=== PATIENT | female | born 1955 | race Caucasian/White ===

== ENCOUNTER 2018-04-06 09:45 | Emergency (ER) | payer MEDICARE ==
[~2018-04-06] VITALS: Ht 165.1 cm; Wt 90.0 kg
[~2018-04-06 09:45] MED LIST: COLACE 100100 MG/CAP PO; DILANTIN 100MG100 MG PO; DILANTIN KAPSE100 MG PO; DULCOLAX S10 MG/SUPP RC; LAMICTAL 100MG100 MG PO; LAMICTAL 25MG T25 MG PO; LAMICTAL XR100 MG PO; LAMICTAL XR25 MG PO; LIPITOR 40MG TA40 MG PO; LIPITOR20 MG PO; LOPRESSOR100 MG PO; METOPROLOL100 MG PO; MILK OF MA400 MG/52 PO; NORCO 325 MG-51 TAB PO; OSCAL 500 TAB500 MG PO; PRILOSEC 20MG20 MG PO; PRINIVIL10 MG PO; SENOKOT S 50 MG1 TAB PO; THERAGRAN TAB1 UDTAB PO; TYLENOL 500MG500 MG PO; TYLENOL W/COD1 UDTAB PO; ULTRAM 50MG TAB50 MG PO; VITAMIN C500 MG PO; XARELTO10 MG PO
[2018-04-06 09:50] VITALS: TEMP 98.6
[2018-04-06] MEDS ORDERED: NORCO 325 MG-51 TAB PO (10:53)
[2018-04-06 11:33] VITALS: BP 119/79; PULSE 102
== END 2018-04-06 11:33 | disposition home or self-care (01) ==
LOC: COL.ER 09:45
DX: S22.32XA Fracture of one rib, left side, initial encounter for closed fracture (principal); W01.0XXA Fall on same level from slipping, tripping and stumbling without subsequent striking against object, initial encounter; Y92.009 Unspecified place in unspecified non-institutional (private) residence as the place of occurrence of the external cause
CPT/HCPCS: A9284; J1885

== ENCOUNTER 2019-11-15 09:59 | Emergency (ER) | payer MEDICARE ==
[~2019-11-15] VITALS: Ht 165.1 cm; Wt 88.6 kg
[2019-11-15 10:08] VITALS: TEMP 98.6
[2019-11-15 12:24] VITALS: BP 160/86; PULSE 84
== END 2019-11-15 13:20 | disposition home or self-care (01) ==
LOC: COL.ER 09:59
DX: S90.32XA Contusion of left foot, initial encounter (principal); W19.XXXA Unspecified fall, initial encounter; Y92.009 Unspecified place in unspecified non-institutional (private) residence as the place of occurrence of the external cause
CPT/HCPCS: Q4021

== ENCOUNTER 2019-12-26 21:21 | Inpatient (IN) | payer MEDICARE, MEDICAID ==
[~2019-12-26] VITALS: Ht 165.1 cm; Wt 80.3 kg
[2019-12-26 21:45] LABS: ARTERIAL BLD GAS O2 SATURATION 95.2 % (92-100); ARTERIAL BLD GAS TCO2 CT 21.1; ARTERIAL BLOOD GAS BASE EXCESS -4.4 (-2-2); ARTERIAL BLOOD GAS PCO2 35.1 mmHg (35-45); ARTERIAL BLOOD GAS PO2 81.2 mmHg (80-100); ARTERIAL BLOOD GAS pH 7.37 (7.35-7.45)
[2019-12-26 21:46] LABS: BASO % 0.5 % (0.0-2.0); EOS # 0.1 (0.0-0.7); EOS % 1.1 % (0-4.0); GRAN # 2.4 (1.4-6.5); GRAN % 42.8 % (42.2-75.2); HEMATOCRIT 40.1 % (37.0-47.0); HEMOGLOBIN 13.9 g/dl (12.5-16.0); LYMPH # 2.6 (1.2-3.4); MEAN CELL VOLUME 90 fl (80.0-100.0); MEAN CORPUSCULAR HEMOGLOBIN 31 pg (27.0-31.0); MEAN CORPUSCULAR HGB CONC 35 g/dl (33.0-37.0); MEAN PLATELET VOLUME 9.2 fl (7.4-10.4); MONO # 0.5 (0.1-0.6); MONO % 9.2 % (1.7-9.3); PLATELET COUNT 268 K/mm3 (130-400); RED BLOOD COUNT 4.45 M/mm3 (4.10-5.30); REDCELL DISTRIBUTION WIDTH-CV 13.9 % (11.5-14.5)
[2019-12-26 21:48] LABS: INR 1.1 (0.8-3.0); PROTHROMBIN TIME 12.1 SECONDS (9.7-12.8)
[2019-12-26 21:58] LABS: ALBUMIN 4.5 gm/dL (3.5-5.0); BILIRUBIN,TOTAL 0.5 mg/dL (0.0-1.0); C-REACTIVE PROTEIN 1.7 mg/dL (0.0-0.9); CALCIUM 9.2 mg/dL (8.4-10.2); CREATININE, serum 0.55 (0.52-1.25); TOTAL PROTEIN 8.8 gm/dL (6.4-8.2)
[2019-12-26 22:06] LABS: TROPONIN-I 0.014 ng/mL (0.000-0.035)
[2019-12-26 22:36] LABS: COLLECTION METHOD CATHETER
[2019-12-26 22:42] LABS: MUCOUS Present /lpf; PH 6 (5-8); SQUAMOUS EPITHELIAL 0-2 /hpf; URINE APPEARANCE Clear; URINE BACTERIA Rare /hpf; URINE BILIRUBIN Negative (NEGATIVE); URINE BLOOD Negative (NEGATIVE); URINE COLOR Yellow; URINE GLUCOSE 1+ (NEGATIVE); URINE KETONE Trace (NEGATIVE); URINE LEUKOCYTE ESTERASE Negative (NEGATIVE); URINE NITRATE Negative (NEGATIVE); URINE PROTEIN(semi-quant) 1+ (NEGATIVE); URINE RBC 0-2 /hpf; URINE UROBILINOGEN Negative (NEGATIVE)
[2019-12-27] VITALS (740 sets, daily range): BP systolic 111–173; BP diastolic 47–91; PULSE 78–95; TEMP 97.7–99; O2SAT 70–100
--- NOTE | 2019-12-27 01:08 | NUR ---
PT ARRIVED TO UNIT VIA ER BED ACCOMPANIED BY CHRIS BARKER AND RT. PT ON BIPAP AT THIS TIME AND CHANGED OVER TO 5L NC ON ARRIVAL. PT TRANSFERRED BED TO BED WITH ASSISTANCE OF STAFF. NO SOA NOTED AND TOLERATED TRANSFER WELL. LEON LANE NOTIFIED OF PATIENT'S ARRIVAL TO THE UNIT. PT ATTACHED TO CRM MONITOR, VITALS OBTAINED. WILL CONTINUE TO MONITOR.
[2019-12-27] MEDS ORDERED: LAMICTAL200 MG (01:24)
[2019-12-27] MEDS ORDERED: LAMICTAL XR200 MG PO (03:08)
[2019-12-27 03:34] LABS: MAGNESIUM 1.9 mg/dL (1.6-2.3); PHOSPHOROUS 3.8 mg/dL (2.5-4.5)
[2019-12-27 04:05] LABS: THYROID STIMULATING HORMONE 0.494 uIU/mL (0.465-4.680)
[2019-12-27 05:36] LABS: CALCIUM 8.3 mg/dL (8.4-10.2); CREATININE, serum 0.45 (0.52-1.25); POTASSIUM 3.9 mmol/L (3.4-5.0)
--- NOTE | 2019-12-27 10:41 | NUR ---
First visit from the web development consultant. No needs right now.
--- NOTE | 2019-12-27 11:16 | NUR ---
Groundskeeper Supervisor attended clinical rounds with the team. The patient to transfer to the surgical floor. SHERIE met with the patient to complete initial intake. The patient lives in [place] with her life partner, Trevor Guevara #[phone]. The patient did to have a walker but no longer has one. She is currently on oxygen. She does not use it at home. The team will try and wean her off. The patient has a foot brace and takes sponge bathes. Trevor assists the patient donning and doffing her pants due to the foot brace. Per EMR the patient's PCP is Dr. Samaniego. The patient no longer sees Dr. Samaniego and does not have a PCP at this time. The patient would like to be set up with a PCP at [facility]. The patient does not have advanced directives in the EMR. The patient has two estranged children, Susanna Billy III and Shakira Gonzalez who live in [place] but she does not know which city nor does she have their contact information. SHERIE discussed the importance of having advanced directives, the patient declined. SHERIE discussed the benefits of home health services, the patient declined. She states she still drives. The patient may need a ride home. She has her keys but her vehicle is at home. She does not want her life partner driving her vehicle. She states he has DUIs and has confusion sometimes. The patient plans to return home at discharge and she has declined [facility]. SHERIE contacted [facility] to set up PCP, left message with Dr. Mcallister's nurse. SHERIE collaborated the above information with the surgical floor SW.
--- NOTE | 2019-12-27 14:00 | NUR ---
Patient just transported to surgical floor to room 324. CHRIS Robertson at bedside.
--- NOTE | 2019-12-27 14:30 | NUR ---
Patient is to the floor from ICU. Denies pain at this time. Call light within reach. Oriented to room. Denies nausea. Patient is hoping to discharge home tomorrow. She will require a ride home as she has no family. No other changes at this time. Call light within reach.
--- NOTE | 2019-12-27 21:14 | NUR ---
Resting in bed. Assessment complete. Upper lobes wheezing with expiration otherwise clear. Heart sounds normal. Bowels active x4. Pulses present throughout. No edema noted. INT left and right forearms flushed without complications. Patient reporting right leg spasms and would like muscle relaxer. Spoke with Isabella QUINTERO. Ordering labs prior to medication. Will update Isabella VALENCIAN when labs are back. Patient aware of plan.
[2019-12-27 21:37] LABS: CALCIUM 8.5 mg/dL (8.4-10.2); CREATININE, serum 0.6 (0.52-1.25); MAGNESIUM 1.9 mg/dL (1.6-2.3); POTASSIUM 3.9 mmol/L (3.4-5.0)
--- NOTE | 2019-12-27 23:44 | NUR ---
SPOKE WITH PATIENT ABOUT BIPAP FOR THE NIGHT, NOT WANTING TO WEAR AT THIS TIME AND SAYS SHE FEELS SHE IS DOING GOOD WITHOUT IT. PATIENT DOES NOT WEAR ONE AT HOME, BUT LET PATIENT KNOW TO HAVE THE NURSE CALL ME ANYTIME IF SHE FEELS SHE WANTS IT.
--- NOTE | 2019-12-27 23:58 | NUR ---
Reported 5/10 leg pains. Provided with PRN tramadol. Denies other needs at this time. Call light in reach.
[2019-12-28] VITALS (7 sets, daily range): BP systolic 104–165; BP diastolic 57–77; PULSE 69–84; TEMP 97.8–98.3
--- NOTE | 2019-12-28 02:04 | NUR ---
Resting in bed asleep. Call light in reach.
--- NOTE | 2019-12-28 04:13 | NUR ---
Resting in bed. Denies needs. Denies pain. Call light in reach.
--- NOTE | 2019-12-28 05:18 | NUR ---
Patient required x1 dose of tramadol for pain control throughout night. Otherwise uneventful night. Resting in bed this AM. Call light in reach.
--- NOTE | 2019-12-28 06:46 | NUR ---
Report given to CHRIS Valiente
[2019-12-28 06:58] LABS: BASO % 0.2 % (0.0-2.0); EOS % 0.2 % (0-4.0); GRAN # 3.1 (1.4-6.5); GRAN % 55.5 % (42.2-75.2); LYMPH % 36.2 % (20.0-51.0); MEAN CELL VOLUME 90 fl (80.0-100.0); MEAN CORPUSCULAR HGB CONC 35 g/dl (33.0-37.0); MEAN PLATELET VOLUME 9.9 fl (7.4-10.4); MONO # 0.4 (0.1-0.6); MONO % 7.5 % (1.7-9.3); PLATELET COUNT 232 K/mm3 (130-400); RED BLOOD COUNT 3.31 M/mm3 (4.10-5.30)
[2019-12-28 07:03] LABS: CALCIUM 8.4 mg/dL (8.4-10.2); CHOLESTEROL RISK RATIO 3.8; CREATININE, serum 0.52 (0.52-1.25); POTASSIUM 3.6 mmol/L (3.4-5.0)
--- NOTE | 2019-12-28 07:06 | NUR ---
REPORT FROM MCKENNA PEREZ. PT RESTING IN BED EATING BREAKFAST.
[2019-12-28 07:13] LABS: HEMATOCRIT 29.7 % (37.0-47.0); HEMOGLOBIN 10.4 g/dl (12.5-16.0); MEAN CORPUSCULAR HEMOGLOBIN 31 pg (27.0-31.0)
--- NOTE | 2019-12-28 09:15 | NUR ---
ATTEMPTED TO COLLECT SPUTUM CULTURES, UNSUCESSFUL, PT UNABLE TO PRODUCE ANY SAMPLE. WILL ATTEMPT AT A LATER TIME. PT INSTRUCTED TO NOTIFY NURSING IF SHE FEELS LIKE SHE WOULD BE ABLE TO PROVIDE SPECIMEN.
--- NOTE | 2019-12-28 09:27 | NUR ---
PT RESTING IN BED, DENIES NEEDS. ATE BREAKFAST. PAIN CONTROLLED WITH PO MEDS.PT DENIES NEEDS. UNABLE TO OBTAIN SPUTUM CX ORDERED. WALKER BOOT ON LEFT SIDE PER HOME NEEDS.
--- NOTE | 2019-12-28 12:37 | NUR ---
PT UP INDENPENDENTLY TO BR. RETURNED TO BED. FREE WATER INCREASED TO 500 MLS/24HR.
--- NOTE | 2019-12-28 14:03 | NUR ---
Catering Chef followed up with CHRIS Walker at [facility] about setting up a new patient appointment with Dr. Mcallister. Earliest new patient appointment available was 05/25/20 @ 1300, which was scheduled at this time. Denise advised SW would just need to contact their office again at discharge to schedule hospital follow up with a nurse practitioner. SHERIE provided appointment time to screening unit registered nurse and advised another appointment would be scheduled at discharge.
--- NOTE | 2019-12-28 15:53 | NUR ---
Initial visit; Patient thanked Antique Jewelry Repairer for looking in on her and offering comfort, encouragement and to keep her in Antique Jewelry Repairer's prayers.
--- NOTE | 2019-12-28 19:33 | NUR ---
Resting in bed. Assessment complete. Bases bilaterally diminished otherwise clear. Heart sounds normal. Bowels active x4. Pulses present throughout. No edema noted. INT to left and right forearm flushed without complications. Brace to left lower extremity in place. CMS intact. Denies pain at this time. Denies other needs. Call light in reach.
--- NOTE | 2019-12-28 22:55 | NUR ---
Resting in bed asleep. Call light in reach.
--- NOTE | 2019-12-28 23:51 | NUR ---
Reported 5/10 pain. Provided with PRN tramadol. Denies other needs. Call light in reach.
[2019-12-29 00:28] VITALS: BP 153/88; PULSE 76
--- NOTE | 2019-12-29 00:43 | NUR ---
SURG NURSE CALLED AT APPROXIMATELY 0035 HRS EXPLAINING THAT THE PT HAD BEEN UP TO GO TO THE RESTROOM AND BECAME SHORT OF BREATH. AFTER CHECKING PULSE OX IT WAS DETERMINED THE PT HAD AN SPO2 OF 81% ON RA. PT WAS PLACED ON 02 AT 4LPM WHICH ACHIEVED A SP02 OF 92% PT HAS LOUD EXPIRATORY WHEEZES THROUGHOUT THE LUNG BAUGH. PT WAS GIVEN A PRN DUONEB AND WILL BE REASSESSED POST TX.
--- NOTE | 2019-12-29 00:53 | NUR ---
Patient having audible wheezing upon arrival in room. Oxygen saturation on room air is 81%. Patient started on oxygen at 4 liters to reach 92%. Respiratory notified for breathing tx. After breathing tx patient 93% on 2 liters. Patient now dry heaving. Spoke with LEON Hancock updated regarding patient condition. Order for zofran x1 dose obtained. Will provide to patient.
[2019-12-29 04:00] VITALS: BP 148/72; PULSE 69; TEMP 98.4
--- NOTE | 2019-12-29 04:52 | NUR ---
Reports pain. Will provide with PRN tramadol. Denies other needs. call light in reach.
--- NOTE | 2019-12-29 05:27 | NUR ---
Patient placed back on oxygen throughout night due to episode of 81% on room air. Patient on 2 liters at 95-98%. Patient also required tramadol for pain control throughout night. Otherwise uneventful night. Resting in bed this AM. Call light in reach.
[2019-12-29 06:44] LABS: BASO % 0.3 % (0.0-2.0); EOS % 0.5 % (0-4.0); GRAN # 3.7 (1.4-6.5); GRAN % 56.4 % (42.2-75.2); HEMOGLOBIN 10.5 g/dl (12.5-16.0); LYMPH # 2.4 (1.2-3.4); LYMPH % 36.3 % (20.0-51.0); MEAN CELL VOLUME 91 fl (80.0-100.0); MEAN CORPUSCULAR HEMOGLOBIN 31 pg (27.0-31.0); MEAN CORPUSCULAR HGB CONC 34 g/dl (33.0-37.0); MEAN PLATELET VOLUME 9.7 fl (7.4-10.4); MONO # 0.4 (0.1-0.6); MONO % 6.2 % (1.7-9.3); PLATELET COUNT 229 K/mm3 (130-400); RED BLOOD COUNT 3.36 M/mm3 (4.10-5.30); REDCELL DISTRIBUTION WIDTH-CV 14.5 % (11.5-14.5)
[2019-12-29 06:48] LABS: HEMATOCRIT 30.7 % (37.0-47.0)
[2019-12-29 06:53] LABS: CALCIUM 8.6 mg/dL (8.4-10.2); CREATININE, serum 0.71 (0.52-1.25); POTASSIUM 3.6 mmol/L (3.4-5.0)
--- NOTE | 2019-12-29 07:05 | NUR ---
Report given to CHRIS Valiente
[2019-12-29 07:34] VITALS: BP 93/52; PULSE 51; TEMP 97.8
--- NOTE | 2019-12-29 08:56 | NUR ---
AGREE WITH STUDENTS ASSESSMENTS THIS AM.
--- NOTE | 2019-12-29 09:37 | NUR ---
Initial visit; Patient thanked Work Order Sorting Clerk for stopping in and leaving a special prayer card this morning and wishing offering God's blessings.
[2019-12-29 12:00] VITALS: BP 109/48; PULSE 68; TEMP 97.5
--- NOTE | 2019-12-29 14:52 | NUR ---
Crate Builder spoke with RN, Rocco who advised he received a call from patient's neighbor expressing concern for patient's spouse, Trevor. According to the neighbor, Trevor has dementia and was trying to get into the car to drive. The neighbor advised that Trevor stated he was going to [place] to case picker patient. SHERIE contacted DARRELL Carpenter Crate Builder who advised the intake made by SHERIE Reynolds screened out. SHERIE made an additional report with the new information (intake #[id number]).
--- NOTE | 2019-12-29 15:57 | NUR ---
Pantograph Watcher followed up with patient to discuss discharge planning. Patient is currently requiring oxygen although she does not have home oxygen set up. Patient states she does not want to have home oxygen set up and she she also does not want to quit smoking. Patient then states if she really needs home oxygen, she may consider it but isn't sure. Patient states if she did want it ordered, she would like to have it ordered through [facility]. SW also provided update to patient on primary care appointment with Dr. Mcallister. SHERIE will continue to follow.
[2019-12-29 16:06] VITALS: BP 134/59; PULSE 64; TEMP 98.2
[2019-12-29 19:48] VITALS: BP 117/56; PULSE 65; TEMP 97.6
--- NOTE | 2019-12-29 21:50 | NUR ---
Pt. laying in bed at this time. Pt. is A&OX3, assessment complete. INT to rt. and lt. forearms patent. Pt. denies pain or other needs, call light within reach.
[2019-12-30 03:06] VITALS: BP 161/82; PULSE 65; TEMP 97.5
[2019-12-30 07:09] LABS: BASO % 0.3 % (0.0-2.0); EOS % 0.3 % (0-4.0); GRAN # 3.8 (1.4-6.5); GRAN % 60.5 % (42.2-75.2); HEMOGLOBIN 11.1 g/dl (12.5-16.0); LYMPH # 1.9 (1.2-3.4); LYMPH % 31.2 % (20.0-51.0); MEAN CELL VOLUME 91 fl (80.0-100.0); MEAN CORPUSCULAR HEMOGLOBIN 31 pg (27.0-31.0); MEAN CORPUSCULAR HGB CONC 35 g/dl (33.0-37.0); MEAN PLATELET VOLUME 10.2 fl (7.4-10.4); MONO # 0.5 (0.1-0.6); MONO % 7.2 % (1.7-9.3); PLATELET COUNT 229 K/mm3 (130-400); RED BLOOD COUNT 3.53 M/mm3 (4.10-5.30); REDCELL DISTRIBUTION WIDTH-CV 14.5 % (11.5-14.5)
[2019-12-30 07:13] LABS: HEMATOCRIT 32.2 % (37.0-47.0)
[2019-12-30 07:19] LABS: CALCIUM 8.6 mg/dL (8.4-10.2); CREATININE, serum 0.6 (0.52-1.25); POTASSIUM 3.2 mmol/L (3.4-5.0)
[2019-12-30 08:00] VITALS: BP 113/45; PULSE 68; TEMP 97.7
[2019-12-30] MEDS ORDERED: TOPROL XL 50MG50 MG PO (08:51)
[2019-12-30] MEDS ORDERED: PROAIR HFA0.09 MG/AC IH (08:51)
[2019-12-30] MEDS ORDERED: TYLENOL 325MG325 MG PO (08:51)
[2019-12-30] MEDS ORDERED: LASIX 40MG TABL40 MG PO (08:52)
[2019-12-30] MEDS ORDERED: MEDROL 4MG DOSPA4 MG PO (08:52)
[2019-12-30] MEDS ORDERED: RT ADVAIR 228 DISKUS IH (08:55)
--- NOTE | 2019-12-30 09:00 | NUR ---
Reviewed students nurse assessment of patient and agree with findings. Patients lung sounds all wheeler diminished, student reported exp wheezes all wheeler. Assessments done at different times too. Patient is A&Ox3. VSS. IV CDI. Patient is hoping to go home today. Left leg in a boot, CMS WNL. Reporting pain 8/10 left foot, pain medication given as requested from the patient. No further needs expressed from the patient. Call light within reach
--- NOTE | 2019-12-30 09:51 | NUR ---
Follow-up visit; Sarath states she slept well last night and thanked for looking in on her.
--- NOTE | 2019-12-30 11:28 | NUR ---
Discharge paperwork reviewed with the patient. Patient verbalized an understanding to follow doctors orders. Patient is going to eat lunch and nursing staff will call a cab for the patient. No further needs expressed from the patient. Call light within reach
[2019-12-30 12:15] VITALS: BP 108/44; PULSE 69; TEMP 98.1
--- NOTE | 2019-12-30 12:20 | NUR ---
IV removed x2, tip intact, patient tolerated well. Gauze and coban applied. Patient transfered in wheelchair to go vam go by nursing staff and student nurse. Personal belongings and discharge paperwork with the patient. No further needs expressed from the patient.
--- NOTE | 2019-12-30 13:04 | NUR ---
Senior Vice President & General Counsel attended clinical rounds with the team and patient is ready for discharge. SHERIE collaborated with RT Gwen after exercise oximetry and was advised that patient does not qualify for home oxygen. SHERIE scheduled a hospital follow up for patient with DIEGO Chung at [facility] for 01/06/20 @ 1000. SHERIE provided this appointment to unit manager rn. SHERIE met with patient to review discharge plan. SHERIE again offered Home Health Services and patient declined. Patient states she does not feel she needs it. Patient states she needs a taxi ride home as her partner is not able to drive. Patient reports she can pay for a taxi. SHERIE collaborated with RNNata who advised she will call [employer] [facility] [employer] once patient is ready to go. Patient will discharge home today with no additional services.
== END 2019-12-30 12:20 | disposition home or self-care (01) | DRG 189 ==
LOC: COL.ER 21:21 → ICU 23:31 → SURG 12-27 14:37
PROVIDERS: Emergency Medicine; Nurse Practitioner Family; Physician Assistant; ADMIT Hospitalist
DX: J96.00 Acute respiratory failure, unspecified whether with hypoxia or hypercapnia (principal); J44.1 Chronic obstructive pulmonary disease with (acute) exacerbation; I16.1 Hypertensive emergency; E87.2 Acidosis; E87.1 Hypo-osmolality and hyponatremia; J90 Pleural effusion, not elsewhere classified; J81.1 Chronic pulmonary edema; E11.65 Type 2 diabetes mellitus with hyperglycemia; Z20.828 Contact with and (suspected) exposure to other viral communicable diseases; F17.210 Nicotine dependence, cigarettes, uncomplicated; D64.9 Anemia, unspecified; G40.909 Epilepsy, unspecified, not intractable, without status epilepticus; S99.922A Unspecified injury of left foot, initial encounter; I70.8 Atherosclerosis of other arteries; I70.90 Unspecified atherosclerosis; I10 Essential (primary) hypertension; Z90.711 Acquired absence of uterus with remaining cervical stump; Z91.14 Patient's other noncompliance with medication regimen
CPT/HCPCS: 99223-AI; 99232-AI; 99239; J0456; J0696; J1650; J1940; J1956; J2405; J2543; J2930; J7030; J7050; J7512; Q9967

== ENCOUNTER 2020-01-06 22:52 | Observation (INO) | payer MEDICARE, MEDICAID ==
[~2020-01-06] VITALS: Ht 165.1 cm; Wt 82.1 kg
[~2020-01-06 22:52] MED LIST changes: +LAMICTAL XR200 MG PO; +LAMICTAL200 MG; +LASIX 40MG TABL40 MG PO; +MEDROL 4MG DOSPA4 MG PO; +PROAIR HFA0.09 MG/AC IH; +RT ADVAIR 228 DISKUS IH; +TOPROL XL 50MG50 MG PO; +TYLENOL 325MG325 MG PO
[2020-01-06 23:13] LABS: BASO # 0.1 (0.0-0.2); BASO % 0.6 % (0.0-2.0); EOS # 0.1 (0.0-0.7); EOS % 1.5 % (0-4.0); GRAN # 5.3 (1.4-6.5); GRAN % 61.8 % (42.2-75.2); HEMOGLOBIN 12.8 g/dl (12.5-16.0); LYMPH # 2.3 (1.2-3.4); LYMPH % 27.2 % (20.0-51.0); MEAN CELL VOLUME 90 fl (80.0-100.0); MEAN CORPUSCULAR HEMOGLOBIN 32 pg (27.0-31.0); MEAN CORPUSCULAR HGB CONC 35 g/dl (33.0-37.0); MEAN PLATELET VOLUME 9.6 fl (7.4-10.4); MONO # 0.7 (0.1-0.6); MONO % 8.4 % (1.7-9.3); PLATELET COUNT 297 K/mm3 (130-400); RED BLOOD COUNT 4.04 M/mm3 (4.10-5.30)
[2020-01-06 23:16] LABS: HEMATOCRIT 36.5 % (37.0-47.0)
[2020-01-06 23:19] LABS: INR 1.1 (0.8-3.0); PROTHROMBIN TIME 11.8 SECONDS (9.7-12.8)
[2020-01-06 23:28] LABS: ARTERIAL BLD GAS O2 SATURATION 97.4 % (92-100); ARTERIAL BLD GAS TCO2 CT 23.3; ARTERIAL BLOOD GAS BASE EXCESS -4.5 (-2-2); ARTERIAL BLOOD GAS HCO3 21.9 meq/L (22-26); ARTERIAL BLOOD GAS PCO2 45.5 mmHg (35-45); ARTERIAL BLOOD GAS PO2 113.4 mmHg (80-100)
[2020-01-06 23:38] LABS: ALBUMIN 4.3 gm/dL (3.5-5.0); BILIRUBIN,TOTAL 0.5 mg/dL (0.0-1.0); CALCIUM 8.7 mg/dL (8.4-10.2); CREATININE, serum 0.58 (0.52-1.25); POTASSIUM 3.9 mmol/L (3.4-5.0); TOTAL PROTEIN 7.9 gm/dL (6.4-8.2)
[2020-01-07] VITALS (736 sets, daily range): BP systolic 117–147; BP diastolic 60–76; PULSE 86–90; TEMP 97.9–99; O2SAT 76–100
[2020-01-07 00:08] LABS: TROPONIN-I 0.032 ng/mL (0.000-0.035)
--- NOTE | 2020-01-07 03:00 | NUR ---
Hospitalist at bedside to see patient. Requsting RT draw ABG then place on BIPAP. RT notified.
[2020-01-07 03:47] LABS: ARTERIAL BLD GAS O2 SATURATION 94.9 % (92-100); ARTERIAL BLD GAS TCO2 CT 23.6; ARTERIAL BLOOD GAS BASE EXCESS -0.4 (-2-2); ARTERIAL BLOOD GAS HCO3 22.6 meq/L (22-26); ARTERIAL BLOOD GAS PCO2 32.1 mmHg (35-45); ARTERIAL BLOOD GAS PO2 75.8 mmHg (80-100); ARTERIAL BLOOD GAS pH 7.47 (7.35-7.45)
--- NOTE | 2020-01-07 05:00 | NUR ---
Patient resting in bed; tolerting BIPAP well. No concerns at this time.
--- NOTE | 2020-01-07 06:30 | NUR ---
Arrived to the unit via stretcher. Patient alert and oriented and in no distress. Reports feeling "much better" than upon arrival to the hospital. Attached to all monitors.
--- NOTE | 2020-01-07 07:00 | NUR ---
REPORT RECEIVED FROM HAYLEE PEREZ.
[2020-01-07 10:54] LABS: CALCIUM 8.7 mg/dL (8.4-10.2); CREATININE, serum 0.49 (0.52-1.25); POTASSIUM 4.1 mmol/L (3.4-5.0)
--- NOTE | 2020-01-07 11:08 | NUR ---
1100- AND NOTIFIED OF INCREASED. ORDERS RECEIVED.
--- NOTE | 2020-01-07 11:14 | NUR ---
LAB NOTIFIED OF BC NEEDED NOW AN LACTIC FOR 1600.
--- NOTE | 2020-01-07 11:21 | NUR ---
DISCUSSED WITH REGARDING LASIX. PT HAD A DOSE AROUND 0230 AND HAS ORDERS FOR BID TODAY. STATES HE WILL EVALUATE PT AND WILL DECIDED ON TODAYS FURTHER DOSES.
--- NOTE | 2020-01-07 12:05 | NUR ---
PT PULLED ON PELAEZ CATH WHEN ADJUSTING IN BED. CATHETER IS NOW LEAKING. PELAEZ REMOVED AND REPLACE. UA SENT DOWN.
[2020-01-07 12:11] LABS: COLLECTION METHOD CATHETER
[2020-01-07 12:27] LABS: MUCOUS Present /lpf; PH 5 (5-8); SQUAMOUS EPITHELIAL >50 /hpf; URINE APPEARANCE Turbid; URINE BACTERIA None Seen /hpf; URINE BILIRUBIN Negative (NEGATIVE); URINE BLOOD 3+ (NEGATIVE); URINE COLOR Yellow; URINE GLUCOSE Negative (NEGATIVE); URINE KETONE Negative (NEGATIVE); URINE LEUKOCYTE ESTERASE Trace (NEGATIVE); URINE NITRATE Negative (NEGATIVE); URINE PROTEIN(semi-quant) 1+ (NEGATIVE); URINE RBC 20-50 /hpf; URINE UROBILINOGEN Negative (NEGATIVE); URINE WBC >50 /hpf
--- NOTE | 2020-01-07 15:38 | NUR ---
PT CALLED STATING PELAEZ IS LEAKING. BALLON DEFLATED, PELAEZ ADVANCED, AND BALLOON REINFLATED. WILL CONTINUE TO MONITOR.
--- NOTE | 2020-01-07 19:30 | NUR ---
Assisted off of the bedpan. Small soft formed stool.Stool sent for sample. Patient alert and oriented and in no distress. Denies any pain or shortness of air. VS stable on room air. Call light left within reach; will continue to monitor.
--- NOTE | 2020-01-07 21:10 | NUR ---
Assisted up to medical floor at this time. Patient alert and oriented with stable vs upon transfer.
[2020-01-07 22:13] LABS: CLOSTRIDIUM DIFF A/B NEG; CLOSTRIDIUM DIFF A/B INTERP No C.diff present
--- NOTE | 2020-01-07 23:10 | NUR ---
Patient arrived to medical unit from ICU at approximately 2200. Patient alert and oriented x 4, and able to make needs known. Denies having pain and discomfort at this time. Peripheral INTs to left wrist and left forearm. Denies SOB and dyspnea at this time, but does state she gets SOB with exertion. Respirations even and unlabored. LS expiratory wheezes. HRR. Telemetry in place: normal sinus. Capillary refill less than 3 seconds. Non-tenting skin turgor. BSAx4. Abdomen soft and non-tender. Indwelling chowdhury catheter patent, draining clear yellow urine via dependent drainage. Redness to coccyx and groin. 1+ edema LLE. Boot to left foot. Voices no questions, needs, or concerns at this time. Resting in bed with call light within reach.
[2020-01-08] VITALS (10 sets, daily range): BP systolic 64–135; BP diastolic 32–90; PULSE 66–95; TEMP 97.5–98.2
--- NOTE | 2020-01-08 06:34 | NUR ---
Patient has been resting in bed. Denies having pain and discomfort. Denies SOB and dyspnea. Continues on room air at this time. Voices no questions, needs, or concerns at this time. Resting in bed with call light within reach.
[2020-01-08 06:59] LABS: HEMOGLOBIN 11.1 g/dl (12.5-16.0); MEAN CELL VOLUME 89 fl (80.0-100.0); MEAN CORPUSCULAR HEMOGLOBIN 32 pg (27.0-31.0); MEAN CORPUSCULAR HGB CONC 36 g/dl (33.0-37.0); MEAN PLATELET VOLUME 10.1 fl (7.4-10.4); PLATELET COUNT 283 K/mm3 (130-400); RED BLOOD COUNT 3.47 M/mm3 (4.10-5.30); REDCELL DISTRIBUTION WIDTH-CV 15.1 % (11.5-14.5)
[2020-01-08 07:09] LABS: CALCIUM 8.6 mg/dL (8.4-10.2); CREATININE, serum 0.42 (0.52-1.25); POTASSIUM 3.8 mmol/L (3.4-5.0)
--- NOTE | 2020-01-08 07:45 | NUR ---
Patient sitting up in bed, A&Ox3. VSS. IV CDI. Doyle dependent drainage clear yellow. No complaints of SOB, pain or discomfort. Patient a PUI and droplet/contact precautions in place. No further needs expressed from the patient. Call light within reach
[2020-01-08 07:54] LABS: BAND 2 % (0-10); LYMPHOCYTE 2 % (20.0-51.0); NEUTROPHILS 94 % (42.0-75.2); PLATELET ESTIMATE NORMAL (NORMAL)
--- NOTE | 2020-01-08 12:37 | NUR ---
SW met with patient to complete intake. Patient states that she lives in [place] with her boy friend Trevor [phone]. Patient provides that she currently does not utilize any DME, and is independent with ADL's, PCP is Dr. Samaniego, pharmacy is [facility], and she is able to afford her medications. Patient states that she does not have a DPOA-HC and does not wish to appoint anyone at this time. Patient provides that she does not have any concerns about DC at this time and does not feel as though she will need any assistance upon DC besides a ride to her home due to not wanting her boyfriend to drive her car. Patients covid test was negative and was moved from room 307 to 314. SW will continue to follow.
--- NOTE | 2020-01-08 19:19 | NUR ---
Patient had an uneventful day. Was transferred from room 307 to 314. Patient is covid negative. A&Ox3. Denies pain, discomfort, SOB. IV CDI. Doyle dependent drainage, clear yellow. No further needs expressed from the patient. Call light within reach
--- NOTE | 2020-01-08 19:30 | NUR ---
Pt was sleeping when this nurse went for a bedside handover. No further needs at this time.
--- NOTE | 2020-01-08 23:35 | NUR ---
Pt assessment completed and charted, alert, oriented, roomair. Meds provided as per MAR, tolerated well. No further needs at this time. Pt is settled on her bed, call light is on reach. No further needs at this time.
[2020-01-09 03:48] VITALS: BP 120/63; PULSE 83; TEMP 98.2
--- NOTE | 2020-01-09 04:50 | NUR ---
Pt had an uneventful night, slept on anf off through out the night. No further needs at this time.
--- NOTE | 2020-01-09 07:10 | NUR ---
awake and watching TV, bedside shift report received from CHRIS Cobb
[2020-01-09 07:18] VITALS: BP 103/67; PULSE 73; TEMP 97.8
--- NOTE | 2020-01-09 07:40 | NUR ---
full assessment completed, see interventions for further info, denies needs at this time
[2020-01-09 08:45] LABS: BASO % 0.1 % (0.0-2.0); GRAN # 7.1 (1.4-6.5); GRAN % 70.8 % (42.2-75.2); LYMPH # 2.2 (1.2-3.4); LYMPH % 21.9 % (20.0-51.0); MEAN CELL VOLUME 93 fl (80.0-100.0); MEAN CORPUSCULAR HEMOGLOBIN 32 pg (27.0-31.0); MEAN CORPUSCULAR HGB CONC 35 g/dl (33.0-37.0); MEAN PLATELET VOLUME 9.5 fl (7.4-10.4); MONO # 0.7 (0.1-0.6); MONO % 6.6 % (1.7-9.3); PLATELET COUNT 259 K/mm3 (130-400); RED BLOOD COUNT 3.44 M/mm3 (4.10-5.30); REDCELL DISTRIBUTION WIDTH-CV 15.7 % (11.5-14.5)
[2020-01-09 08:46] LABS: HEMATOCRIT 31.9 % (37.0-47.0)
--- NOTE | 2020-01-09 08:50 | NUR ---
remains in bed, chowdhury draining clear yellow urine, cam boot to left leg, denies needs
[2020-01-09 08:53] LABS: ALBUMIN 3.7 gm/dL (3.5-5.0); BILIRUBIN,TOTAL 0.4 mg/dL (0.0-1.0); CALCIUM 8.5 mg/dL (8.4-10.2); CREATININE, serum 0.62 (0.52-1.25); POTASSIUM 3.9 mmol/L (3.4-5.0)
--- NOTE | 2020-01-09 09:02 | NUR ---
Follow-up visit; Patient thanked Navy Diver for stopping by and letting her know Navy Diver continues to keep her in Navy Diver's prayers.
[2020-01-09] MEDS ORDERED: LASIX 40MG TABL40 MG PO (12:26)
[2020-01-09] MEDS ORDERED: PREDNISONE10 MG PO (12:26)
[2020-01-09] MEDS ORDERED: NICODERM C21 MG/PATC TD (12:27)
[2020-01-09] MEDS ORDERED: ADVOCATE BLOOD1 EAC1 MC (12:28)
--- NOTE | 2020-01-09 12:57 | NUR ---
sitting up in bed eating lunch, chowdhury catheter discontinued
[2020-01-09 13:33] VITALS: BP 111/48; PULSE 85; TEMP 97.4
--- NOTE | 2020-01-09 14:56 | NUR ---
Fire Production Operator attended clinical rounds with the team and patient to discharge home today. Hospitalist discussed the importance of quitting smoking with patient who verbalized understanding. SW met with patient who states she can pay for a taxi, but may need help calling them. SW advised a taxi could be contacted once she is ready for discharge. SHERIE discussed Home Health Services wt patient as she is a readmit. Patient states she still doesn't feel she needs it. Patient states what she needs to do is quit smoking, which she plans to try to do upon discharge. No additional needs at this time.
--- NOTE | 2020-01-09 15:24 | NUR ---
assisted up to bathroom and voided qs, telemetry discontinued, INT discontinued, will get dressed for discharge
--- NOTE | 2020-01-09 15:43 | NUR ---
discharge instructions given to patient, verbalizes understandinag
--- NOTE | 2020-01-09 16:02 | NUR ---
wawtching TV waiting for transportation for discharge
--- NOTE | 2020-01-09 16:18 | NUR ---
discharged per WC
== END 2020-01-09 16:19 | disposition home or self-care (01) ==
LOC: COL.ER 22:52 → ICU 01-07 01:47 → MEDICAL 01-07 22:28
PROVIDERS: Emergency Medicine; Internal Medicine Pulmonary Disease; Nurse Practitioner Family; Physician Assistant; Student in an Organized Health Care Education/Training Program
DX: J96.00 Acute respiratory failure, unspecified whether with hypoxia or hypercapnia (principal); J90 Pleural effusion, not elsewhere classified; I11.0 Hypertensive heart disease with heart failure; I50.30 Unspecified diastolic (congestive) heart failure; J44.1 Chronic obstructive pulmonary disease with (acute) exacerbation; E87.2 Acidosis; Z20.828 Contact with and (suspected) exposure to other viral communicable diseases; I95.1 Orthostatic hypotension; I10 Essential (primary) hypertension; R19.7 Diarrhea, unspecified; E87.1 Hypo-osmolality and hyponatremia; F17.210 Nicotine dependence, cigarettes, uncomplicated; R73.03 Prediabetes; G40.909 Epilepsy, unspecified, not intractable, without status epilepticus; E78.5 Hyperlipidemia, unspecified; Z90.710 Acquired absence of both cervix and uterus
CPT/HCPCS: 99223-AI; 99233-AI; 99239; G0378; J0696; J1650; J1815; J1940; J2920; J2930; J7030; J7040; J7512; Q9967

== ENCOUNTER 2020-01-25 01:34 | Observation (INO) | payer MEDICARE, MEDICAID ==
[~2020-01-25] VITALS: Ht 165.1 cm; Wt 76.0 kg
[~2020-01-25 01:34] MED LIST changes: +ADVOCATE BLOOD1 EAC1 MC; +NICODERM C21 MG/PATC TD; +PREDNISONE10 MG PO
[2020-01-25 02:15] LABS: ARTERIAL BLD GAS O2 SATURATION 99.6 % (92-100); ARTERIAL BLD GAS TCO2 CT 18.1; ARTERIAL BLOOD GAS BASE EXCESS -7.2 (-2-2); ARTERIAL BLOOD GAS HCO3 17.2 meq/L (22-26); ARTERIAL BLOOD GAS PCO2 31.5 mmHg (35-45); ARTERIAL BLOOD GAS PO2 212.8 mmHg (80-100); ARTERIAL BLOOD GAS pH 7.35 (7.35-7.45)
[2020-01-25 02:38] LABS: BASO % 0.6 % (0.0-2.0); EOS # 0.1 (0.0-0.7); EOS % 2.5 % (0-4.0); GRAN # 3.2 (1.4-6.5); GRAN % 66.8 % (42.2-75.2); HEMATOCRIT 35.7 % (37.0-47.0); HEMOGLOBIN 12.6 g/dl (12.5-16.0); LYMPH # 1.2 (1.2-3.4); LYMPH % 24.9 % (20.0-51.0); MEAN CELL VOLUME 92 fl (80.0-100.0); MEAN CORPUSCULAR HEMOGLOBIN 33 pg (27.0-31.0); MEAN CORPUSCULAR HGB CONC 35 g/dl (33.0-37.0); MEAN PLATELET VOLUME 8.9 fl (7.4-10.4); MONO # 0.2 (0.1-0.6); MONO % 4.8 % (1.7-9.3); PLATELET COUNT 250 K/mm3 (130-400); RED BLOOD COUNT 3.88 M/mm3 (4.10-5.30); REDCELL DISTRIBUTION WIDTH-CV 15.6 % (11.5-14.5)
[2020-01-25 02:47] LABS: ALANINE AMINOTRANSFERASE 17 U/L (4-34); ALBUMIN 4.2 gm/dL (3.5-5.0); ALKALINE PHOSPHATASE 143 U/L (50-136); ANION GAP 12 mmol/L (7-16); AST,SGOT 36 U/L (15-37); BILIRUBIN,TOTAL 0.6 mg/dL (0.0-1.0); BLOOD UREA NITROGEN 8 mg/dL (7-17); CALCIUM 8.8 mg/dL (8.4-10.2); CARBON DIOXIDE 19 mmol/L (22-30); CHLORIDE 96 mmol/L (98-107); CREATININE, serum 0.55 (0.52-1.25); GLUCOSE 333 mg/dL (74-106); SODIUM 127 mmol/L (137-145); TOTAL PROTEIN 7.3 gm/dL (6.4-8.2)
[2020-01-25 03:09] LABS: TROPONIN-I < 0.012 ng/mL (0.000-0.035)
[2020-01-25] MEDS ORDERED: TOPROL XL 25MG25 MG PO (04:49)
[2020-01-25 05:40] LABS: ARTERIAL BLD GAS O2 SATURATION 99.5 % (92-100); ARTERIAL BLD GAS TCO2 CT 19.6; ARTERIAL BLOOD GAS BASE EXCESS -4.7 (-2-2); ARTERIAL BLOOD GAS HCO3 18.7 meq/L (22-26); ARTERIAL BLOOD GAS PCO2 29.8 mmHg (35-45); ARTERIAL BLOOD GAS pH 7.42 (7.35-7.45)
[2020-01-25 05:43] LABS: ARTERIAL BLOOD GAS PO2 266.2 mmHg (80-100)
[2020-01-25 16:14] VITALS: BP 132/78; PULSE 92
--- NOTE | 2020-01-25 16:15 | NUR ---
Patient to room 318 by cart from the ED. A&Ox4. VSS 2L NC O2. Nurse assessed O2 sats and patient now on room air 96%. No reported SOB, pain or discomfort. Nurse oriented patient to location, room and call light. No further needs expressed from the patient. Call light within reach. Droplet/contact precautions in place
--- NOTE | 2020-01-25 17:57 | NUR ---
Patient sitting up in bed watching TV. A&Ox4. VSS, on room air. No reported SOB. IV CDI. Droplet/contact precautions in place. Boot left foot. Denies pain and discomfort. No further needs expressed from the patient. Call light within reach
--- NOTE | 2020-01-25 20:00 | NUR ---
Patient assessed at this time. Alert and oriented, and able to make needs known. Denies having pain and discomfort at this time. Peripheral INT to left forearm. Site without redness, warmth, swelling, and pain. Denies SOB and dypsnea. On room air at this time. Not ready for bed or putting on BIPAP at this time. RT notified. LS CTA. Respirations even and unlabored. HRR. Telemetry in place. Capillary refill less than 3 seconds. Non-tenting skin turgor. BSAx4. Abdomen soft and non-tendr. No edema. Patient has boot to LLE due to ankle fracture. Bruising to BUE in various stages of healing. Voices no questions, needs, or concerns at this time. Resting in bed with call light within reach.
[2020-01-25 20:18] VITALS: BP 142/76; PULSE 100; TEMP 98.2
[2020-01-26] VITALS (7 sets, daily range): BP systolic 101–165; BP diastolic 49–85; PULSE 82–96; TEMP 97.7–98.6
--- NOTE | 2020-01-26 05:08 | NUR ---
Patient has been resting in bed. Did call for assistance around 0400 to have BIPAP taken off and assisted to the bathroom. Voices no further questions, needs, or concerns at this time. Call light is within reach.
--- NOTE | 2020-01-26 06:20 | NUR ---
Spoke to DIEGO Mason. Asked if she was wanting to do a covid send out, since her rapid had come back negative. DIEGO stated that patient was not a PUI and should be moved out of covid/PUI room. Patient transferred to room 313.
[2020-01-26 06:21] LABS: HEMOGLOBIN 11.7 g/dl (12.5-16.0); MEAN CELL VOLUME 92 fl (80.0-100.0); MEAN CORPUSCULAR HEMOGLOBIN 32 pg (27.0-31.0); MEAN CORPUSCULAR HGB CONC 35 g/dl (33.0-37.0); MEAN PLATELET VOLUME 9.6 fl (7.4-10.4); PLATELET COUNT 248 K/mm3 (130-400); RED BLOOD COUNT 3.63 M/mm3 (4.10-5.30); REDCELL DISTRIBUTION WIDTH-CV 15.7 % (11.5-14.5)
[2020-01-26 06:22] LABS: HEMATOCRIT 33.2 % (37.0-47.0)
[2020-01-26 06:36] LABS: ALBUMIN 3.8 gm/dL (3.5-5.0); BILIRUBIN,TOTAL 0.4 mg/dL (0.0-1.0); CALCIUM 8.8 mg/dL (8.4-10.2); CREATININE, serum 0.6 (0.52-1.25); MAGNESIUM 2.1 mg/dL (1.6-2.3); POTASSIUM 4.1 mmol/L (3.4-5.0); TOTAL PROTEIN 6.9 gm/dL (6.4-8.2)
--- NOTE | 2020-01-26 07:58 | NUR ---
Patient sitting up in bed watching TV. A&Ox4. VSS no report SOB. IV CDI. Denies pain and discomfort. No further needs expressed from the patient. Call light within reach
--- NOTE | 2020-01-26 13:26 | NUR ---
SW met with patient to complete intake. Patient provides that she lives with her boyfriend Trevor [phone]. Patient states that she does not utilize any DME and is independent with her ADL's. Patient provides that her PCP is Dr. Samaniego, pharmacy is [facility], and that she is currently able to afford her medications at this time. Patient states that she has no desire to appoint anyone as her DPOA-HC at this time. Patient provides that she will go back to her home in [place] upon discharge and has not concerns in doing so. Patient provides that she does not utilize any home health services at this time and will not need home health upon discharge due being able to do all things on her own. Patient did inform SW that she will need a taxi upon discharge. SW will continue to follow.
--- NOTE | 2020-01-26 17:51 | NUR ---
Patient had an uneventful day, spent the day resting in bed. A&Ox3. VSS. IV CDI. No reported SOB, pain or discomfort. No further needs expressed from the patient. Call light within reach
--- NOTE | 2020-01-26 20:00 | NUR ---
Report received, assumed care for manager night. Assessment complete. VS stable. A&Ox3. Denies pain/nausea/shortness of breath. INT to left [id number] without difficulty. Currently on room air with O2 sat 92%. Plan of care discussed for this shift to include HS meds/calling for quesitons/concerns. Verbalizes understanding. Call light in reach. Will monitor.
--- NOTE | 2020-01-27 00:30 | NUR ---
Resting eyes closed. No s/s of pain noted.
[2020-01-27 03:37] VITALS: BP 136/73; PULSE 80; TEMP 97.9
--- NOTE | 2020-01-27 04:00 | NUR ---
Rested off and on this shift. Denies pain/nausea/shortness of breath. Has remained on room air with good O2 Sats. VS remained stable. Tolerating diet-following fluid restriction. INT to left FA flushes without difficulty. Blood sugars WNL. Call light in reach. Will monitor.
[2020-01-27 07:57] VITALS: BP 106/54; PULSE 80; TEMP 98.4
[2020-01-27] MEDS ORDERED: ASPIRIN 81M81 MG/TA2 PO (09:16)
[2020-01-27] MEDS ORDERED: MEDROL 4MG DOSPA4 MG PO (09:18)
[2020-01-27] MEDS ORDERED: IMDUR 30MG30 MG/TAB PO (09:18)
[2020-01-27] MEDS ORDERED: OMNICEF 300MG300 MG PO (09:20)
[2020-01-27] MEDS ORDERED: LASIX 40MG TABL40 MG PO (09:21)
[2020-01-27] MEDS ORDERED: LIPITOR 40MG TA40 MG PO (09:21)
--- NOTE | 2020-01-27 10:45 | NUR ---
The patient is to discharge today, 01/26, and needs transport back home. SHERIE contacted [facility] and provided the patient's RN with a taxi voucher for her. [facility] is to be here in thirty minutes. SHERIE notified the patient and her RN. No additional needs at this time.
--- NOTE | 2020-01-27 11:14 | NUR ---
REVIEWED DISCHARGE INSTRUCTIONS WITH PT. QUESTIONS SOLICITED AND ANSWERED. PT LEFT TO TAXI FOR RIDE HOME.
== END 2020-01-27 11:00 | disposition home or self-care (01) ==
LOC: COL.ER 01:34 → MEDICAL 11:05 → EDBEDREQ 14:26 → MEDICAL 01-26 06:16
PROVIDERS: Emergency Medicine; Nurse Practitioner Family; Physician Assistant; ADMIT Hospitalist
DX: J96.00 Acute respiratory failure, unspecified whether with hypoxia or hypercapnia (principal); R65.10 Systemic inflammatory response syndrome (SIRS) of non-infectious origin without acute organ dysfunction; J44.1 Chronic obstructive pulmonary disease with (acute) exacerbation; Z20.828 Contact with and (suspected) exposure to other viral communicable diseases; M06.9 Rheumatoid arthritis, unspecified; I25.2 Old myocardial infarction; I10 Essential (primary) hypertension; E87.1 Hypo-osmolality and hyponatremia; F17.210 Nicotine dependence, cigarettes, uncomplicated; R73.9 Hyperglycemia, unspecified; G43.909 Migraine, unspecified, not intractable, without status migrainosus; I08.1 Rheumatic disorders of both mitral and tricuspid valves
CPT/HCPCS: C8923; J0456; J0696; J1650; J1815; J1940; J2405; J2920; J3475; J7050; Q9957

== ENCOUNTER 2020-02-09 10:19 | Emergency (ER) | payer MEDICARE, MEDICAID ==
[~2020-02-09] VITALS: Ht 162.6 cm; Wt 75.0 kg
[~2020-02-09 10:19] MED LIST changes: +ASPIRIN 81M81 MG/TA2 PO; +IMDUR 30MG30 MG/TAB PO; +OMNICEF 300MG300 MG PO; +TOPROL XL 25MG25 MG PO
[2020-02-09 10:21] VITALS: TEMP 98.4
[2020-02-09 10:59] LABS: BASO % 0.4 % (0.0-2.0); EOS % 0.3 % (0-4.0); GRAN # 5.6 (1.4-6.5); GRAN % 74.3 % (42.2-75.2); HEMOGLOBIN 12.7 g/dl (12.5-16.0); LYMPH % 13.2 % (20.0-51.0); MEAN CELL VOLUME 93 fl (80.0-100.0); MEAN CORPUSCULAR HEMOGLOBIN 33 pg (27.0-31.0); MEAN CORPUSCULAR HGB CONC 35 g/dl (33.0-37.0); MEAN PLATELET VOLUME 8.7 fl (7.4-10.4); MONO # 0.9 (0.1-0.6); MONO % 11.3 % (1.7-9.3); PLATELET COUNT 271 K/mm3 (130-400); REDCELL DISTRIBUTION WIDTH-CV 15.6 % (11.5-14.5)
[2020-02-09 11:02] LABS: HEMATOCRIT 36.2 % (37.0-47.0)
[2020-02-09 11:08] LABS: ALANINE AMINOTRANSFERASE 23 U/L (4-34); ALBUMIN 4.3 gm/dL (3.5-5.0); ALKALINE PHOSPHATASE 130 U/L (50-136); ANION GAP 10 mmol/L (7-16); AST,SGOT 30 U/L (15-37); BILIRUBIN,TOTAL 0.9 mg/dL (0.0-1.0); BLOOD UREA NITROGEN 5 mg/dL (7-17); CALCIUM 9.1 mg/dL (8.4-10.2); CARBON DIOXIDE 26 mmol/L (22-30); CREATININE, serum 0.62 (0.52-1.25); GLUCOSE 119 mg/dL (74-106); POTASSIUM 4.2 mmol/L (3.4-5.0); SODIUM 125 mmol/L (137-145); TOTAL PROTEIN 7.7 gm/dL (6.4-8.2)
[2020-02-09 11:16] LABS: TROPONIN-I 0.015 ng/mL (0.000-0.035)
[2020-02-09 11:22] LABS: C-REACTIVE PROTEIN < 0.5 mg/dL (0.0-0.9)
[2020-02-09 11:24] LABS: CHLORIDE 89 mmol/L (98-107)
[2020-02-09 11:28] LABS: COLLECTION METHOD CATHETER
[2020-02-09 11:41] LABS: INR 1.1 (0.8-3.0); PROTHROMBIN TIME 12.3 SECONDS (9.7-12.8)
[2020-02-09 11:45] LABS: PH 6 (5-8); SQUAMOUS EPITHELIAL None Seen /hpf; URINE APPEARANCE Clear; URINE BACTERIA None Seen /hpf; URINE BILIRUBIN Negative (NEGATIVE); URINE BLOOD 1+ (NEGATIVE); URINE COLOR Yellow; URINE GLUCOSE Negative (NEGATIVE); URINE KETONE Negative (NEGATIVE); URINE LEUKOCYTE ESTERASE Negative (NEGATIVE); URINE NITRATE Negative (NEGATIVE); URINE PROTEIN(semi-quant) Negative (NEGATIVE); URINE RBC 0-2 /hpf; URINE UROBILINOGEN Negative (NEGATIVE)
[2020-02-09 14:01] VITALS: BP 147/77; PULSE 99
== END 2020-02-09 14:01 | disposition short-term general hospital (02) ==
LOC: COL.ER 10:19
PROVIDERS: Nurse Practitioner
DX: I67.89 Other cerebrovascular disease (principal); Z20.828 Contact with and (suspected) exposure to other viral communicable diseases; Z79.82 Long term (current) use of aspirin
CPT/HCPCS: J7030; Q9967